=== PATIENT | female | born 1965 | race Caucasian/White ===

== ENCOUNTER 2025-02-18 13:51 | Outpatient (CLI) | payer BC ==
[2025-02-18 14:09] LABS: #Basophils 0.1 thou/uL (0.0-0.2); #Eosinophils 0.2 thou/uL (0.0-0.7); #Lymphocytes 2.0 thou/uL (1.20-3.40); #Monocytes 0.4 thou/uL (0.11-0.59); #Neutrophils 3.3 thou/uL (1.40-6.50); %Basophils 1.5 % (0.0-1.0); %Eosinophils 3.0 % (0.0-10.0); %Lymphocytes 33.9 % (21.0-51.0); %Monocytes 6.7 % (0.0-10.0); %Neutrophils 54.8 % (42.0-75.0); Hematocrit 42.2 % (36.0-47.0); Hemoglobin 13.6 g/dL (12.0-16.0); Mean Corpuscular Hemoglobin 29.1 pg (27.0-31.0); Mean Corpuscular Volume 90.6 fl (78.0-98.0); Platelet Count 350 10x3/uL (130-400); Red Blood Cell (RBC) Count 4.66 mill/uL (4.20-5.40); White Blood Cell (WBC) Count 6.0 10x3/uL (4.8-10.8)
[2025-02-18 14:22] LABS: ALT (SGPT) 13 U/L (Less than 34); AST (SGOT) 23 U/L (11-34); Albumin 4.9 g/dL (3.1-4.5); Alkaline Phosphatase 66 U/L (40-110); Anion Gap 18 mmol/L (10-20); BUN (Urea Nitrogen) 16 mg/dL (9.8-20.1); Bilirubin, Total 1.0 mg/dL (0.3-1.2); Calc. Creatinine Clearance 0 mL/min (70-130); Calcium 8.7 mg/dL (7.8-10.44); Carbon Dioxide 25 mmol/L (22-29); Chloride 101 mmol/L (98-107); Globulin 2.4 g/dL (2.4-3.5); Glucose 106 mg/dL (70-105); Potassium 3.6 mmol/L (3.5-5.1); Sodium 140 mmol/L (136-145)
[2025-02-18 22:51] LABS: Albumin (w/Testosterone Panel) 4.7 g/dL
[2025-02-18 23:07] LABS: Free T4 (Free Thyroxine) 0.92 ng/dL (0.70-1.48)
[2025-02-18 23:11] LABS: Testosterone, Free 3.1 pg/mL (50-110)
[2025-02-19] LABS: Vitamin D, 25 Hydroxy 58.0 ng/ml (> 30.0)
== END 2025-02-18 13:52 | disposition home or self-care (01) ==
LOC: MADLAB 13:51
PROVIDERS: ATTEND Internal Medicine Endocrinology, Diabetes & Metabolism
DX: E03.9 Hypothyroidism, unspecified (principal); E55.9 Vitamin D deficiency, unspecified; E27.9 Disorder of adrenal gland, unspecified; R53.83 Other fatigue
CPT/HCPCS: 36415; 80053; 82306; 82627; 84270; 84403; 84439; 84443; 84481; 85025